=== PATIENT | female | born 1975 | race American Indian/Alaskan Native ===

== ENCOUNTER 2017-11-08 10:09 | Emergency (ER) | payer OTHER ==
[2017-11-08 10:26] VITALS: BP 136/81
--- NOTE | 2017-11-08 10:58 | EDM.PDOC ---
Scribed by Jovita Wallace 11/08/17 1058 for Choco Wills MD ED HPI GENERAL MEDICAL PROBLEM - General Chief Complaint: ENT Problem Stated Complaint: SICK Time Seen by Provider: 11/08/17 10:14 Source of Information: Reports: Patient, RN, RN Notes Reviewed History Limitations: Reports: No Limitations - History of Present Illness INITIAL COMMENTS - FREE TEXT/NARRATIVE: Patient presents to ER with complaint of 2 weeks of sinus pain and congestion with onset of swollen tonsils and pressure in her ears for the past 3 days. Denies fever, but has had some chills. No cough, abdominal pain, nausea or vomiting. Onset: Gradual Duration: Getting Worse Location: Reports: Other (sinus and throat) Quality: Reports: Ache Severity: Moderate Improves with: Reports: None Worsens with: Reports: None Associated Symptoms: Reports: No Other Symptoms Throat Pain Score (Numeric/FACES): 5 - Related Data Allergies Allergy/AdvReac Type Severity Reaction Status Date / Time No Known Allergies Allergy Verified 11/26/15 12:12 Home Meds: Home Meds FLUoxetine [PROzac] 10 mg PO DAILY 11/26/15 [History] buPROPion [Wellbutrin] 75 mg PO DAILY 11/26/15 [History] Past Medical History Gastrointestinal History: Reports: None [employer] History: Reports: Other [employer] History: Musculoskeletal History: Reports: Fracture Psychiatric History: Reports: Depression - Infectious Disease History Infectious Disease History: Reports: Chicken Pox - Past Surgical History Female Surgical History: Reports: Section Social & Family History - Family History Family Medical History: Noncontributory ED ROS ENT - Review of Systems Review Of Systems: ROS reveals no pertinent complaints other than HPI. ED EXAM, ENT - Physical Exam Exam: See Below Exam Limited By: No Limitations General Appearance: Alert, WD/WN, No Apparent Distress Eye Exam: Bilateral Eye: Normal Inspection Ears: Other (Left TM is retracted with peripheral erythema. Right TM is bulging with cloudy effusion and slight central erythema. ) Nose: Other (red injected turbinates. Inflamed nasal mucosa. Purulent discharge. ) Mouth/Throat: Normal Gums, Normal Lips, Normal Teeth, Tonsillar Swelling. No: Peritonsillar Mass, Tonsillar Exudates Head: Atraumatic, Normocephalic Neck: Other (tender upper bilateral cervical lymphadenopathy.No nuchal rigidity.. ) Respiratory/Chest: No Respiratory Distress, Lungs Clear, Normal Breath Sounds, No Accessory Muscle Use, Chest Non-Tender Cardiovascular: Normal Peripheral Pulses, Regular Rate, Rhythm, No Edema, No Gallop, No JVD, No Murmur, No Rub GI/Abdominal: Other (benign obese) (Female) Exam: Deferred Rectal (Female) Exam: Deferred Back: Normal Inspection Extremities: Normal Inspection Neurological: Alert, Oriented, CN II-XII Intact, Normal Cognition, Normal Gait, No Motor/Sensory Deficits Psychiatric: Normal Affect, Normal Mood Course - Vital Signs Last Recorded V/S: Last Vital Signs Temp 36.3 C 11/08/17 10:16 Pulse 74 11/08/17 10:16 Resp 18 11/08/17 10:16 BP 136/81 11/08/17 10:16 Pulse Ox 98 11/08/17 10:16 - Orders/Labs/Meds Orders: Active Orders 24 hr Category Date Time Status CULTURE STREP A CONFIRMATION [RM] Stat Lab 11/08/17 10:13 Results STREP SCRN A RAPID W CULT CONF [RM] Stat Lab 11/08/17 10:13 Results Labs: Rapid strep: Negative. Departure - Departure Time of Disposition: 10:48 Disposition: Home, Self-Care 01 Condition: Good Clinical Impression: Tonsillitis Sinusitis Qualifiers: Sinusitis location: unspecified location Chronicity: acute Recurrence: non- recurrent Qualified Code(s): J01.90 - Acute sinusitis, unspecified - Discharge Information Instructions: Tonsillitis, [id number], Sinusitis, Adult, [id number] Forms: ED Department Discharge Additional Instructions: RX: Amoxicillin 500mg. RX: Prednisone 20mg. Follow up in clinic if not improving in 3 to 4 days. - My Orders Last 24 Hours: My Active Orders 11/08/17 10:13 CULTURE STREP A CONFIRMATION [RM] Stat STREP SCRN A RAPID W CULT CONF [RM] Stat - Assessment/Plan Last 24 Hours: My Active Orders 11/08/17 10:13 CULTURE STREP A CONFIRMATION [RM] Stat STREP SCRN A RAPID W CULT CONF [RM] Stat I have read and agree with the documentation that has been completed regarding this visit. By signing this record, I attest that the documentation was completed in my physical presence and is an accurate record of the encounter.
== END 2017-11-08 11:00 | disposition home or self-care (01) ==
LOC: DL.ED 10:09
DX: J03.90 Acute tonsillitis, unspecified (principal); J01.90 Acute sinusitis, unspecified
CPT/HCPCS: 87081; 87430; 99283

== ENCOUNTER 2021-11-18 12:53 | Emergency (ER) | payer BC, OTHER ==
[2021-11-18] MEDS ORDERED: Acyclovir 200 MG Cap PO ONE ×2 (12:54→15:05)
[2021-11-18 14:29] VITALS: BP 135/83; PULSE 76
[2021-11-18] MEDS ORDERED: Acyclovir 200 MG Cap ONE ×2 (15:24→15:26)
== END 2021-11-18 15:38 | disposition home or self-care (01) ==
LOC: DL.ED 12:53
DX: B02.9 Zoster without complications (principal); R59.1 Generalized enlarged lymph nodes; K21.9 Gastro-esophageal reflux disease without esophagitis; F17.210 Nicotine dependence, cigarettes, uncomplicated; Z79.899 Other long term (current) drug therapy
CPT/HCPCS: 99282; 99283; A9270